=== PATIENT | male | born 1955 | race Two or more races ===

== ENCOUNTER 2025-02-02 09:06 | Emergency (ER) | payer MEDICARE, OTHER ==
[~2025-02-02] VITALS: Ht 185.4 cm; Wt 70.3 kg
[2025-02-02 10:34] LABS: CALCIUM, SERUM 8.6 mg/dL (8.5-10.1); CREATININE 1.0 mg/dL (0.6-1.3); SODIUM SERUM 141.0 mmol/L (136-145); UREA NITROGEN, BLOOD 20.0 mg/dL (7-18)
[2025-02-02 10:35] LABS: PLATELET COUNT (AUTO) 214 K/uL (150-450); RED BLOOD CELL COUNT(AUTO) 4.54 MIL/uL (4.5-6.0); RED CELL DISTRIBUTION WIDTH 14.4 % (11.5-15.0); WHITE BLOOD COUNT (AUTO) 8.4 K/uL (4.3-11.0)
[2025-02-02 10:42] LABS: APPEARANCE,URINE CLEAR (CLEAR); BLOOD, URINE 1+ Ery/uL (NEGATIVE); LEUKOCYTE ESTERASE ,URINE TRACE (NEGATIVE); NITRITE, URINE NEGATIVE (NEGATIVE); UGLUCOSE NEGATIVE (NEGATIVE)
[2025-02-02] MEDS ORDERED: POTASSIUM CHLORIDE 20 MEQ TAB.PRT.SR PO ONE (11:02)
[2025-02-02] MEDS: POTASSIUM CHLORIDE 20 MEQ TAB.PRT.SR PO ONE (11:06)
[2025-02-02 11:17] LABS: ADD URINE CULTURE YES
[2025-02-02 11:18] LABS: SQUAMOUS EPITHELIAL CELL,UR 0-2 /HPF (None Seen)
[2025-02-02] MEDS ORDERED: CEFP200T14 PO (11:55)
[2025-02-02] MEDS ORDERED: CEFTRIAXONE 1GM BAG (ER ONLY) 50 ML IV ONE (11:58)
[2025-02-02] MEDS: CEFTRIAXONE 1GM BAG (ER ONLY) 1 GM/50 ML PIGGYBACK IV ONE (12:08)
[2025-02-02 12:34] VITALS: BP 123/76; TEMP 97.9; O2SAT 100
== END 2025-02-02 12:34 | disposition home or self-care (01) ==
LOC: ER 09:36
DX: N48.89 Other specified disorders of penis (principal); N32.89 Other specified disorders of bladder; G89.29 Other chronic pain; K40.20 Bilateral inguinal hernia, without obstruction or gangrene, not specified as recurrent; N40.0 Benign prostatic hyperplasia without lower urinary tract symptoms; K57.30 Diverticulosis of large intestine without perforation or abscess without bleeding
CPT/HCPCS: 99284; 96374; 72192; 85025; 80048; 87077; 87086; 87186; 81001; 36415; J0696